=== PATIENT | female | born 1965 | race Asian ===

== ENCOUNTER 2016-11-14 16:43 | Emergency (ER) | payer SELFPAY ==
[~2016-11-14] VITALS: Ht 157.5 cm; Wt 67.1 kg
[2016-11-14 16:43] VITALS: TEMP 37.3; Ht 157.5 cm; Wt 67.1 kg
[2016-11-14] MEDS ORDERED: SODIUM CHLORIDE 0.9% 1000ML 1,000 ML IV STA (16:59)
[2016-11-14] MEDS ORDERED: HYDROmorphone INJ 1 MG/ML SYR IV STA (16:59)
[2016-11-14] MEDS ORDERED: ONDANSETRON INJ 2 MG/ML 2 ML VIAL IV STA (16:59)
[2016-11-14] MEDS ORDERED: KETOROLAC TROMETHAMINE 30 MG/ML VIAL IV STA (16:59)
[2016-11-14 17:05] VITALS: O2SAT 100
[2016-11-14 17:21] LABS: BASO % 0.2 %; BASO ABS # 0.02 K/uL (0-0.2); COMPLETE YES; EOS % 3.6 %; HEMATOCRIT 38.8 % (37-47); IG% 0.5 %; LYMPH % 26.6 %; MEAN CELL VOLUME 91.5 fL (80-100); MEAN CORPUSCULAR HEMOGLOBIN 30.9 pg (25-34); MEAN CORPUSCULAR HGB CONC 33.8 g/dl (32-36); MEAN PLATELET VOLUME 11.4 fL (7.4-10.4); MONO % 5.9 %; NEUT % 63.2 %; PLATELET COUNT 128 K/uL (130-400); RED BLOOD COUNT 4.24 M/uL (4.2-5.4); WHITE BLOOD COUNT 8.28 K/uL (4.8-10.8)
[2016-11-14 17:45] LABS: ALKALINE PHOSPHATASE 83 U/L (45-117); ALT/SGPT 40 U/L (12-78); BLOOD UREA NITROGEN 24 mg/dl (7-18); BUN/CREATININE RATIO 26.6 (10-20); CALCIUM 9.2 mg/dl (8.5-10.1); CARBON DIOXIDE 28 mmol/L (21-32); CHLORIDE 108 mmol/L (98-107); GLUCOSE 95 mg/dl (70-99); SODIUM 142 mmol/L (136-145)
--- NOTE | 2016-11-14 18:03 | DIAGNOSTIC IMAGING REPORT ---
PELVIS 1 OR 2 VIEW ROUTINE CLINICAL HISTORY: Pt fall trauma COMPARISON: None. DISCUSSION: The bones and joint spaces appear intact. There is no evidence of fracture, dislocation or bony disease. There is no evidence for soft tissue swelling. IMPRESSION: Negative study. The above report was generated using voice recognition software. It may contain grammatical, syntax or spelling errors. Electronically signed by: Miguel Hanley M.D. 11/14/2016 6:02 PM Dictated Date/Time: 11/14/2016 6:01 PM
--- NOTE | 2016-11-14 18:04 | DIAGNOSTIC IMAGING REPORT ---
HEAD WITHOUT CONTRAST (CT) CT DOSE: 1224.89 mGy.cm HISTORY: Trauma. Mental status change. Pt c/o AMS TECHNIQUE: Multiaxial CT images of the head were performed without the use of intravenous contrast. Comparison: None. Findings: The paranasal sinuses and mastoid air cells are clear. The calvarium and skull base are intact. The ventricles and sulci are within normal limits. There is no mass, hematoma, midline shift, or acute infarct. Impression: No acute intracranial abnormality. The above report was generated using voice recognition software. It may contain grammatical, syntax or spelling errors. Electronically signed by: Miguel Hanley M.D. 11/14/2016 6:03 PM Dictated Date/Time: 11/14/2016 6:02 PM
--- NOTE | 2016-11-14 18:06 | DIAGNOSTIC IMAGING REPORT ---
CERVICAL SPINE W/O CT DOSE: HISTORY: Trauma Pt c/o fall, AMS TECHNIQUE: Multiaxial CT images of the cervical spine were performed and reformatted in the sagittal and coronal plane without the use of contrast. COMPARISON: None. FINDINGS: No fractures. No subluxation. Prevertebral soft tissues and the C1-C2 interval are intact. No pneumothorax. IMPRESSION: No fractures within the cervical spine. The above report was generated using voice recognition software. It may contain grammatical, syntax or spelling errors. Electronically signed by: Miguel Hanley M.D. 11/14/2016 6:04 PM Dictated Date/Time: 11/14/2016 6:03 PM
--- NOTE | 2016-11-14 18:10 | DIAGNOSTIC IMAGING REPORT ---
(CHEST) THORAX WITHOUT CT DOSE: HISTORY: Trauma pain Pt c/o left 8th rib pain TECHNIQUE: Multiaxial CT images of the chest were performed without contrast. COMPARISON: None. FINDINGS: The lungs are clear. The mediastinal vascular structures are within normal limits. No mediastinal or hilar lymphadenopathy. No pleural effusion or pneumothorax. Limited views of the upper abdomen demonstrate a normal liver and spleen. Bilateral augmentation mammoplasties with peripherally calcified margins. Slight wedge deformity superior endplate T2 felt to be old radiographically. Nondisplaced cortical fracture left anterior eighth. IMPRESSION: Nondisplaced cortical fracture anterior left eighth rib. Otherwise negative study. The above report was generated using voice recognition software. It may contain grammatical, syntax or spelling errors. Electronically signed by: Miguel Hanley M.D. 11/14/2016 6:09 PM Dictated Date/Time: 11/14/2016 6:05 PM
[2016-11-14] MEDS ORDERED: LIDODERM (LIDOCAINE) PATCH 5% TD STA (18:24)
[2016-11-14] MEDS ORDERED: OXYC-57 PO (18:27)
[2016-11-14] MEDS ORDERED: NF656 TD (18:27)
[2016-11-14] MEDS ORDERED: PERCOCET HOME PACK PO ONE (18:30)
--- NOTE | 2016-11-14 18:45 | EMERGENCY ROOM VISIT NOTE ---
History Report prepared by Scribe: Jacoby Gill Under the Supervision of: Dr. Javed Bernal M.D. First contact with patient: 16:49 Chief Complaint: FALL Stated Complaint: FALL, RIB PAIN History of Present Illness The patient is a 51 year old female who presents to the Emergency Room by EMS with complaints of constant head pain s/p fall occurring just prior to arrival. History was obtained with help of an online overhauler bus truck service. Per son, the patient was helping the patient to move his possessions into his new apartment when she fell. He states that the patient fell off of a [employer] truck and hit her head. He states that the patient felt lightheaded prior to the fall. The patient estimates that she lost consciousness for about 5 seconds. She also complains of left hip pain, left rib, and abdominal pain from the fall. She denies any shortness of breath or pain with breathing. Source of History: patient (online overha[employer] bus truck service), family (son) Onset: Just prior to arrival Position: head Timing: constant Associated Symptoms: + LOC, + abdominal pain, No SOB Note: The patient also complains of left hip pain, left rib pain and lightheadedness prior to her fall. Review of Systems See HPI for pertinent positives & negatives. A total of 10 systems reviewed and were otherwise negative. Past Medical & Surgical Medical Problems: (1) No Known Active Medical Problems Family History No pertinent family history stated. Social History Housing Status: lives with family Current/Historical Medications Scheduled Lidocaine (Lidoderm Patch 5%), 1 PATCH TD DIRECTED Scheduled PRN Oxycodone/Acetaminophen 5MG/325MG (Percocet 5MG/325MG), 1-2 TAB PO Q4H PRN for Pain Allergies Coded Allergies: No Known Allergies (Unverified , 11/14/16) Physical Exam Vital Signs Date Time Temp Pulse Resp B/P (MAP) Pulse Ox O2 Delivery O2 Flow Rate FiO2 11/14/16 17:58 94 20 154/83 97 Room Air 11/14/16 17:17 88 11/14/16 17:05 100 Room Air 11/14/16 17:05 100 Room Air 11/14/16 16:43 37.3 93 22 138/91 99 Room Air Physical Exam GENERAL: Patient is a healthy-appearing well-nourished female HEAD: Normocephalic atraumatic EYES: Ocular movements intact pupils equal and react to light OROPHARYNX mucous membranes are moist no exudates present no erythema or edema present NECK: Supple no nuchal rigidity CHEST: Good equal expansion. Tenderness to palpation of the left 9th, 10th and 11th ribs. LUNGS: Clear and equal to auscultation CARDIAC: Normal S1 and S2 ABDOMEN: Soft nontender no guarding BACK: No CVA tenderness EXTREMITIES: No pain upon palpation normal muscle strength in all groups no clubbing cyanosis or edema NEURO: Patient is following commands and answering questions appropriately. Alert and oriented x3 Cranial Nerves 2-12 grossly intact Medical Decision & Procedures ER Provider Diagnostic Interpretation: Radiology results as stated below per my review and radiologist interpretation: PELVIS 1 OR 2 VIEW ROUTINE DISCUSSION: The bones and joint spaces appear intact. There is no evidence of fracture, dislocation or bony disease. There is no evidence for soft tissue swelling. IMPRESSION: Negative study. The above report was generated using voice recognition software. It may contain grammatical, syntax or spelling errors. Electronically signed by: Miguel Hanley M.D. HEAD WITHOUT CONTRAST (CT) Findings: The paranasal sinuses and mastoid air cells are clear. The calvarium and skull base are intact. The ventricles and sulci are within normal limits. There is no mass, hematoma, midline shift, or acute infarct. Impression: No acute intracranial abnormality. The above report was generated using voice recognition software. It may contain grammatical, syntax or spelling errors. Electronically signed by: Miguel Hanley M.D. (CHEST) THORAX WITHOUT FINDINGS: The lungs are clear. The mediastinal vascular structures are within normal limits. No mediastinal or hilar lymphadenopathy. No pleural effusion or pneumothorax. Limited views of the upper abdomen demonstrate a normal liver and spleen. Bilateral augmentation mammoplasties with peripherally calcified margins. Slight wedge deformity superior endplate T2 felt to be old radiographically. Nondisplaced cortical fracture left anterior eighth. IMPRESSION: Nondisplaced cortical fracture anterior left eighth rib. Otherwise negative study. The above report was generated using voice recognition software. It may contain grammatical, syntax or spelling errors. Electronically signed by: Miguel Hanley M.D. CERVICAL SPINE W/O FINDINGS: No fractures. No subluxation. Prevertebral soft tissues and the C1-C2 interval are intact. No pneumothorax. IMPRESSION: No fractures within the cervical spine. The above report was generated using voice recognition software. It may contain grammatical, syntax or spelling errors. Electronically signed by: Miguel Hanley M.D. Laboratory Results 11/14/16 17:10 Red Blood Count 4.24, Mean Corpuscular Volume 91.5, Mean Corpuscular Hemoglobin 30.9, Mean Corpuscular Hemoglobin Concent 33.8, Mean Platelet Volume 11.4, Neutrophils (%) (Auto) 63.2, Lymphocytes (%) (Auto) 26.6, Monocytes (%) (Auto) 5.9, Eosinophils (%) (Auto) 3.6, Basophils (%) (Auto) 0.2, Neutrophils # (Auto) 5.23, Lymphocytes # (Auto) 2.20, Monocytes # (Auto) 0.49, Eosinophils # (Auto) 0.30, Basophils # (Auto) 0.02 11/14/16 17:10 Test 11/14/16 17:10 11/14/16 17:20 White Blood Count 8.28 K/uL (4.8-10.8) Red Blood Count 4.24 M/uL (4.2-5.4) Hemoglobin 13.1 g/dL (12.0-16.0) Hematocrit 38.8 % (37-47) Mean Corpuscular Volume 91.5 fL (80-100) Mean Corpuscular Hemoglobin 30.9 pg (25-34) Mean Corpuscular Hemoglobin Concent 33.8 g/dl (32-36) Platelet Count 128 K/uL (130-400) Mean Platelet Volume 11.4 fL (7.4-10.4) Neutrophils (%) (Auto) 63.2 % Lymphocytes (%) (Auto) 26.6 % Monocytes (%) (Auto) 5.9 % Eosinophils (%) (Auto) 3.6 % Basophils (%) (Auto) 0.2 % Neutrophils # (Auto) 5.23 K/uL (1.4-6.5) Lymphocytes # (Auto) 2.20 K/uL (1.2-3.4) Monocytes # (Auto) 0.49 K/uL (0.11-0.59) Eosinophils # (Auto) 0.30 K/uL (0-0.5) Basophils # (Auto) 0.02 K/uL (0-0.2) RDW Standard Deviation 41.2 fL (36.4-46.3) RDW Coefficient of Variation 12.4 % (11.5-14.5) Immature Granulocyte % (Auto) 0.5 % Immature Granulocyte # (Auto) 0.04 K/uL (0.00-0.02) Anion Gap 6.0 mmol/L (3-11) Est Creatinine Clear Calc Drug Dose 65.7 ml/min Estimated GFR () 85.2 Estimated GFR (Non- 73.5 BUN/Creatinine Ratio 26.6 (10-20) Calcium Level 9.2 mg/dl (8.5-10.1) Total Bilirubin 0.8 mg/dl (0.2-1) Direct Bilirubin mg/dl (0-0.2) Aspartate Amino Transf (AST/SGOT) U/L (15-37) Alanine Aminotransferase (ALT/SGPT) 40 U/L (12-78) Alkaline Phosphatase 83 U/L (45-117) Total Protein 7.3 gm/dl (6.4-8.2) Albumin 4.0 gm/dl (3.4-5.0) Bedside Glucose 88 mg/dl (70-90) Labs reviewed by ED physician. Medications Administered Medications (Trade) Dose Ordered Sig/Litzy Route Start Time Stop Time Status Last Admin Dose Admin Sodium Chloride 1,000 ml @ 999 mls/hr Q1H1M STAT IV 11/14/16 16:59 11/14/16 17:59 DC 11/14/16 17:16 999 MLS/HR Ketorolac Tromethamine (Toradol Inj) 30 mg NOW STAT IV 11/14/16 16:59 11/14/16 17:02 DC 11/14/16 17:17 30 MG Hydromorphone HCl (Dilaudid Inj) 1 mg NOW STAT IV 11/14/16 16:59 11/14/16 17:02 DC 11/14/16 17:17 1 MG Ondansetron HCl (Zofran Inj) 4 mg NOW STAT IV 11/14/16 16:59 11/14/16 17:02 DC 11/14/16 17:17 4 MG Lidocaine (Lidoderm Patch 5%) 1 patch NOW STAT TD 11/14/16 18:24 7/16/17 18:25 DC 11/14/16 18:50 1 PATCH Oxycodone/ Acetaminophen (Percocet 5/ 325MG Home Pack) 1 homepack UD ONCE PO 11/14/16 18:30 11/14/16 18:31 DC 11/14/16 18:49 1 HOMEPACK ED Course 165: Past medical records reviewed. The patient was evaluated in room A11B. A complete history and physical examination was performed. 165: Ordered Zofran Inj 4 mg IV, Dilaudid Inj 1 mg IV, Toradol Inj 30 mg IV, Sodium Chloride 1000 ml @ 999 mls/hr. 1823: Ordered Lidoderm Patch 5% TD. 183: Ordered Percocet 5/325 mg home pack PO. 1840: Upon reexamination the patient is resting comfortably. I discussed results and treatment plan with the patient. She verbalizes agreement and understanding. The patient is ready for discharge. Medical Decision Differential diagnosis: Etiologies such as fracture, dislocation, intra-abdominal, pneumothorax, intrathoracic , intracranial, neurologic, as well as other traumatic pathologies were entertained. This is a 51-year-old female that presents to the emergency department after not eating today and trying to help her son move. I will note that it is a hot day. The patient reported feeling dizzy and then fell backwards off a truck hitting her head. Believe she had a vasovagal episode. An hourly sign language interpreter was used to communicate with the patient. She is complaining of left chest pain. She is exquisitely tender to touch in this area. She was sent for CAT scan of the head as well as C-spine to clear her c-collar. She is GCS of 15 however she did pass out and had a loss of consciousness and did hit her head. This CAT scan of the head and spine and chest are normal with the exception of an 83 fracture. I do believe that the patient is well enough to be discharged home. An IV was established, the patient given normal saline bolus, Dilaudid, Reglan. The patient will be given a Lidoderm patch for her rib fracture and I recommended she follow-up with her primary care physician. In addition the patient was given an incentive spirometer. Patient and son were in agreement with the treatment plan. Impression Primary Impression: Rib fracture Additional Impressions: Vasovagal episode Fall Scribe Attestation The scribe's documentation has been prepared under my direction and personally reviewed by me in its entirety. I confirm that the note above accurately reflects all work, treatment, procedures, and medical decision making performed by me. Departure Information Dispostion Home / Self-Care Prescriptions Oxycodone/Acetaminophen 5MG/325MG (PERCOCET 5MG/325MG) Tab 1-2 TAB PO Q4H Y for Pain, #14 TAB Prov: Javed Bernal MD 11/14/16 Lidocaine (Lidoderm Patch 5%) 1 Ea Tdsy 1 PATCH TD DIRECTED, #5 PATCH Prov: Javed Bernal MD 11/14/16 Referrals No Doctor, Assigned (PCP) Forms HOME CARE DOCUMENTATION FORM, IMPORTANT VISIT INFORMATION Patient Instructions ED Syncope Vasovagal, Fx Rib, Hypertension Chris, [facility], Spirometer Incentive, Treatment for Vasovagal Syncope, Understanding Vasovagal Syncope Additional Instructions You were found to have an elevated blood pressure today (>120 sytolic or >90 diastolic). Per medicare guidelines, you need to follow up with this blood pressure screening with your Primary Care Physician (PCP). For a new PCP call [phone]. You received narcotic or benzodiazepene medication while in the emergency room today. Do not drive, operate heavy machinery, or drink alcohol under the influence of this medication. Take 600 mg Ibuprofen every 6 hours Take Percocet for breakthrough pain Use incentive spirometer every 15 minutes to avoid pneumonia You have been examined and treated today on an emergency basis only. This is not a substitute for, or an effort to provide, complete comprehensive medical care. It is impossible to recognize and treat all injuries or illnesses in a single emergency department visit. It is therefore important that you follow up closely with your PCP. Call as soon as possible for an appointment. Thank you for your time and consideration. I look forward to speaking with you again soon. Please don't hesitate to call us if you have any questions. Problem Qualifiers Primary Impression: Rib fracture Encounter type: initial encounter Rib fracture type: single rib Fracture type: closed Laterality: left Qualified Codes: S22.32XA - Fracture of one rib, left side, initial encounter for closed fracture Additional Impressions: Fall Encounter type: initial encounter Qualified Codes: W19.XXXA - Unspecified fall, initial encounter
[2016-11-14 19:21] VITALS: BP 154/83; PULSE 97; O2SAT 97
== END 2016-11-14 19:22 | disposition home or self-care (01) ==
LOC: C.EDA 16:47
DX: S22.32XA Fracture of one rib, left side, initial encounter for closed fracture (principal); R55 Syncope and collapse; W17.89XA Other fall from one level to another, initial encounter; W22.8XXA Striking against or struck by other objects, initial encounter